=== PATIENT | male | born 1995 | race American Indian/Alaskan Native ===

== ENCOUNTER 2016-08-14 06:09 | Observation (INO) | payer OTHER ==
[2016-08-14 07:42] LABS: BASO # 0.1 K/uL (0.0-0.2); BASO % 0.9 % (0.0-2.0); EOS # 0.1 K/uL (0.0-0.7); EOS % 1.1 % (0.0-4.0); HEMATOCRIT 39.1 % (35.0-51.0); LYMPH # 2.1 K/uL (1.0-4.3); MEAN CELL VOLUME 86.7 fl (80.0-94.0); MEAN CORPUSCULAR HEMOGLOBIN 27.5 pg (27.0-31.0); MEAN CORPUSCULAR HGB CONC 31.8 g/dL (33.0-37.0); MEAN PLATELET VOLUME 8.7 fl (7.2-11.7); MONO # 0.9 K/uL (0.0-0.8); MONO % 15.7 % (0.0-10.0); NEUT # 2.8 K/uL (1.8-7.0); NEUT % 47.3 % (50.0-75.0); NRBC % 0.2 % (0.0-0.0); RED CELL DISTRIBUTION WIDTH 13.1 % (11.5-14.5); WHITE BLOOD COUNT 5.9 K/uL (4.8-10.8)
[2016-08-14 07:48] LABS: ALB/GLOB RATIO 1.2 (1.0-2.1); ALKALINE PHOSPHATASE 81 U/L (38-126); ALT/SGPT 31 U/L (21-72); AST/SGOT 31 U/L (17-59); BILIRUBIN,TOTAL 0.5 mg/dl (0.2-1.3); BLOOD UREA NITROGEN 11 mg/dl (9-20); CALCIUM 9.9 mg/dL (8.4-10.2); CARBON DIOXIDE 26 mmol/L (22-30); CHLORIDE 104 mmol/L (98-107); GFR AFRICAN-AMERICAN > 60; GLUCOSE,RANDOM 89 mg/dL (75-110); POTASSIUM 4.3 MMOL/L (3.6-5.0); SODIUM 146 mmol/l (132-148); TOTAL PROTEIN 8.3 G/DL (6.3-8.2)
--- NOTE | 2016-08-14 07:53 | ED PDOC ---
Lower Extremity Pain/Injury Time Seen by Provider: 08/14/16 07:02 Chief Complaint (Nursing): Lower Extremity Problem/Injury Chief Complaint (Provider): intensely increasing knee pain History Per: Patient History/Exam Limitations: no limitations Severity: Severe Additional Complaint(s): 21yo male w/ past distant surgical repair of internal derangement of knee comes to ED complaining severe left knee pain. States pain is worse with ambulation since playing basketball several weeks ago. Pain has limited ability to ambulate now, is crescendo in nature and now not relieved with available analgesia. Past Medical History Reviewed: Historical Data, Nursing Documentation, Vital Signs Vital Signs: Last Vital Signs Temp 97.4 F L 08/14/16 06:24 Pulse 69 08/14/16 06:24 Resp 17 08/14/16 06:24 BP 131/87 08/14/16 06:24 Pulse Ox 98 08/14/16 06:24 - Medical History PMH: No Chronic Diseases - Surgical History Other surgeries: meniscus repair - Family History Family History: States: Unknown Family Hx - Living Arrangements Living Arrangements: With Family - Social History Current smoker - smoking cessation education provided: No - Home Medications Home Medications: Ambulatory Orders Medication Instructions Recorded oxyCODONE/Acetaminophen [Percocet 1 mg PO .Q4-6 PRN 08/14/16 5/325 mg Tab] - Allergies Allergies/Adverse Reactions: Allergies Allergy/AdvReac Type Severity Reaction Status Date / Time No Known Allergies Allergy Verified 08/14/16 06:24 Review of Systems ROS Statement: Except As Marked, All Systems Reviewed And Found Negative Constitutional: Negative for: Fever, Chills Cardiovascular: Negative for: Chest Pain, Palpitations Musculoskeletal: Positive for: Other (knee pain) Neurological: Negative for: Weakness, Numbness Physical Exam - Reviewed Nursing Documentation Reviewed: Yes Vital Signs Reviewed: Yes - Physical Exam Appears: Positive for: Well, Non-toxic, No Acute Distress Head Exam: Positive for: ATRAUMATIC, NORMAL INSPECTION, NORMOCEPHALIC Skin: Positive for: Warm, Dry Eye Exam: Positive for: EOMI, PERRL Cardiovascular/Chest: Positive for: Regular Rate, Rhythm Respiratory: Positive for: Normal Breath Sounds. Negative for: Rales, Rhonchi, Wheezing Extremity: Positive for: Tenderness (Left knee +tender w small effusion and limted ROM). Negative for: Normal ROM (+limited ROM of left knee) Neurologic/Psych: Positive for: Alert, Oriented - Laboratory Results Result Diagrams: 08/14/16 07:30 08/14/16 07:30 - ECG O2 Sat by Pulse Oximetry: 98 (RA) Pulse Ox Interpretation: Normal Medical Decision Making Medical Decision Makin Will consult with Dr. Dey. Labs ordered. 0754: Case discussed with Dr. Dey orthopedics who requests patient be admitted to hospitalist. 0757: Case discussed with hospitalist Dr. Licona who accepts patient. Disposition - Clinical Impression Clinical Impression: Internal derangement of knee - Patient ED Disposition Is Patient to be Admitted: Yes Counseled Patient/Family Regarding: Studies Performed - Disposition Disposition Time: 07:57 Condition: STABLE - Pt Status Changed To: Hospital Disposition Of: Observation - POA Present On Arrival: Falls Or Trauma Additional Comments - Additional Comments Additional Comments: Scribe Attestation: Documented by John Gómez acting as a scribe for Noah Morris DO. Provider Scribe Attestation: All medical record entries made by the Scribe were at my direction and personally dictated by me. I have reviewed the chart and agree that the record accurately reflects my personal performance of the history, physical exam, medical decision making, and the department course for this patient. I have also personally directed, reviewed, and agree with the discharge instructions and disposition.
[2016-08-14 07:59] LABS: PARTIAL THROMBOPLASTIN TIME 29.3 SECONDS (23.3-32.5)
--- NOTE | 2016-08-14 08:11 | CP.PCM.HP ---
History of Present Illness - History of Present Illness History of Present Illness: Chief Complaint: Left knee pain HPI: 21 y/o gent , no significant PMH except for a Hx of Left Meniscus Tear s/p Repair in 2013, came in complaining of left knee pain. The patient is an active young man who plays a lot of sports, he injured his left knee 3 years ago and was found to have Meniscus Tear and this was repaired by Dr Dey 3 yrs ago. He was fine after the surgery and went back to playing basketball however about a year ago , he started having left knee pain again, limiting his activities. His pain continued to get worse and he started to have knee swelling. He stopped playing sports and for the past few months, he has severe pain even with minimal ambulation despite analgesics. Because of the persistence and worsening of his pain, he came to the ED. Present on Admission - Present on Admission Any Indicators Present on Admission: No Review of Systems - Review of Systems All systems: reviewed and no additional remarkable complaints except - Constitutional Constitutional: absent: Chills, Fever, Weight Loss, Weakness - EENT Ears: absent: Dizziness Nose/Mouth/Throat: absent: Nasal Congestion, Sore Throat - Cardiovascular Cardiovascular: absent: Chest Pain, Chest Pain at Rest, Dyspnea on Exertion, Lightheadedness, Orthopnea, Palpitations, Pedal Edema, Rapid Heart Rate - Respiratory Respiratory: absent: Cough, Dyspnea, Dyspnea on Exertion - Gastrointestinal Gastrointestinal: absent: Abdominal Pain, Nausea, Vomiting - Genitourinary Genitourinary: absent: Difficulty Urinating, Dysuria, Hematuria - Musculoskeletal Musculoskeletal: Arthralgias, Joint Swelling, Limited Range of Motion, Stiffness - Integumentary Integumentary: absent: Rash - Neurological Neurological: absent: Focal Weakness, Headaches, Memory Loss, Paresthesias - Psychiatric Psychiatric: absent: Anxiety, Depression - Endocrine Endocrine: absent: Polydipsia, Polyphagia, Polyuria - Hematologic/Lymphatic Hematologic: absent: Easy Bleeding, Easy Bruising Past Patient History - Infectious Disease Hx of Infectious Diseases: None - Tetanus Immunizations Tetanus Immunization: Unknown - Past Medical History & Family History Past Medical History?: Yes Past Family History: Reviewed and not pertinent Pertinent Family History: HTN- grandparents Parents are healthy - Past Social History Smoking Status: Never Smoked Chewing Tobacco Use: No Cigar Use: No Alcohol: Occasional Drugs: Denies Home Situation {Lives}: With Family Domestic Violence: Negative - CARDIAC Hx Cardiac Disorders: No - PULMONARY Hx Respiratory Disorders: No - NEUROLOGICAL Hx Neurological Disorder: No - HEENT Hx HEENT Problems: No - RENAL Hx Chronic Kidney Disease: No - ENDOCRINE/METABOLIC Hx Endocrine Disorders: No - HEMATOLOGICAL/ONCOLOGICAL Hx Blood Disorders: No - INTEGUMENTARY Hx Dermatological Problems: No - MUSCULOSKELETAL/RHEUMATOLOGICAL Hx Musculoskeletal Disorders: Yes Other/Comment: Left meniscus Tear s/p Repair 2013 - GASTROINTESTINAL Hx Gastrointestinal Disorders: No - GENITOURINARY/GYNECOLOGICAL Hx Genitourinary Disorders: No - PSYCHIATRIC Hx Psychophysiologic Disorder: No Hx Substance Use: No - SURGICAL HISTORY Hx Surgeries: Yes Hx Orthopedic Surgery: Yes (Meniscus Tear Repair 2013) Other/Comment: Umbilical Hernia repair at 11 y/o - ANESTHESIA Hx Anesthesia: Yes Hx Anesthesia Reactions: No Hx Malignant Hyperthermia: No Has any member of the family had a problem w/ anesthesia?: No Meds Allergies/Adverse Reactions: Allergies Allergy/AdvReac Type Severity Reaction Status Date / Time No Known Allergies Allergy Verified 08/14/16 06:24 Physical Exam - Constitutional Appears: Well, Non-toxic, No Acute Distress - Head Exam Head Exam: ATRAUMATIC, NORMAL INSPECTION, NORMOCEPHALIC - Eye Exam Eye Exam: EOMI, Normal appearance, PERRL Pupil Exam: NORMAL ACCOMODATION - ENT Exam ENT Exam: Mucous Membranes Moist, Normal External Ear Exam - Neck Exam Neck exam: Positive for: Full Rom. Negative for: Meningismus - Respiratory Exam Respiratory Exam: NORMAL BREATHING PATTERN. absent: Rales, Wheezes, Respiratory Distress - Cardiovascular Exam Cardiovascular Exam: REGULAR RHYTHM, +S1, +S2 - GI/Abdominal Exam GI & Abdominal Exam: Normal Bowel Sounds, Soft. absent: Tenderness - Extremities Exam Extremities exam: Positive for: joint swelling (left knee), normal capillary refill, pedal pulses present. Negative for: calf tenderness, pedal edema Additional comments: Pain on palpation of left knee pain on ROM left knee - Back Exam Back exam: FULL ROM, NORMAL INSPECTION. absent: CVA tenderness (L), CVA tenderness (R), paraspinal tenderness, vertebral tenderness - Neurological Exam Neurological exam: Alert, CN II-XII Intact, Oriented x3, Reflexes Normal - Psychiatric Exam Psychiatric exam: Normal Affect, Normal Mood - Skin Skin Exam: Dry, Intact, Normal Color, Warm Results - Vital Signs Recent Vital Signs: Last Vital Signs Temp 97.4 F L 08/14/16 06:24 Pulse 69 08/14/16 06:24 Resp 17 08/14/16 06:24 BP 131/87 08/14/16 06:24 Pulse Ox 98 08/14/16 08:07 - Labs Result Diagrams: 08/14/16 07:30 08/14/16 07:30 Labs: Laboratory Results - last 24 hr 08/14/16 07:30 WBC 5.9 RBC 4.52 Hgb 12.4 Hct 39.1 MCV 86.7 MCH 27.5 MCHC 31.8 L RDW 13.1 Plt Count 300 MPV 8.7 Neut % (Auto) 47.3 L Lymph % (Auto) 35.0 [place] % (Auto) 15.7 H Eos % (Auto) 1.1 Baso % (Auto) 0.9 Neut # 2.8 Lymph # 2.1 [place] # 0.9 H Eos # 0.1 Baso # 0.1 PT 10.9 INR 1.05 APTT 29.3 Sodium 146 Potassium 4.3 Chloride 104 Carbon Dioxide 26 Anion Gap 21 H BUN 11 Creatinine 1.0 Est GFR ( Amer) > 60 Est GFR (Non-Af Amer) > 60 Random Glucose 89 Calcium 9.9 Total Bilirubin 0.5 AST 31 ALT 31 Alkaline Phosphatase 81 Total Protein 8.3 H Albumin 4.5 Globulin 3.8 Albumin/Globulin Ratio 1.2 Assessment & Plan (1) Left knee pain Status: Acute Comment: severe left knee pain and swelling - hx of Meniscus Repair on the same knee 2014. Pain severe despite analgesics. Ortho consult- Dr Dey. Pain mgt- Morphine IV prn. PT/OT consult. DVT proph (2) Tear of meniscus of left knee Status: Chronic Comment: Hx of Meniscus Repair 2013 Decision To Admit - Pt Status Changed To: Hospital Disposition Of: Observation - . Bed Request Type: Med/Surg Admitting Physician: Sarai Licona
[2016-08-14] MEDS ORDERED: Succinylcholine 200 mg/10 ml Inj IV ONE (10:15)
[2016-08-14] MEDS ORDERED: Propofol 10 mg/ml Inj (20 ML) ONE ×2 (10:15→10:16)
[2016-08-14] MEDS ORDERED: Lidocaine 4% (Laryng-O-Jet) Kit MM ONE (10:15)
[2016-08-14] MEDS ORDERED: ePHEDrine 50 mg/ml Inj ONE (10:15)
[2016-08-14] MEDS ORDERED: Midazolam 2 MG/2 ML VIAL ONE (12:54)
[2016-08-14] MEDS ORDERED: Lactated Ringer's 1,000 ML IV ONE ×2 (13:00→14:30)
[2016-08-14] MEDS ORDERED: Dexamethasone 4 mg/1 ml ONE (13:39)
[2016-08-14] MEDS ORDERED: Desflurane Inhalation Anesthetic Liq (240 ml) ONE (14:21)
[2016-08-14] MEDS ORDERED: Bacitracin OINT 15GM TOP ONE (14:30)
[2016-08-14] MEDS ORDERED: MethylPREDNISolone Depo 40 mg/ml Inj IM ONE (14:30)
[2016-08-14] MEDS ORDERED: Morphine 1 mg/ml preservative-free Inj(Duramorph) IV ONE (14:30)
[2016-08-14] MEDS ORDERED: Bupivacaine 0.5% 50 ML IJ ONE (14:30)
--- NOTE | 2016-08-14 14:36 | PCM.SURG1 ---
Surgeon's Initial Post Op Note - Surgeon's Notes Surgeon: Tiburcio [employer] Economist: JC Peña Type of Anesthesia: General Endo Anesthesia Administered By: DR Shi Pre-Operative Diagnosis: chondral fx medial/lateral meniscus. tricompartmental synovitis. tear lateral mensicus Operative Findings: Chondral fx medial aspect medial femoral condyle/mid aspect lateral femoral condyle. tricompartmental synovits (possible excessive lateral patella p[ressure syndrome, pinching synovium). tear medial meniscus/tear lateral menicus. tendonosis patella ligament and quad tendon Post-Operative Diagnosis: as above Operation Performed: arthroscopic microfracture- medial/lateral femoral condyle. arthroscopic tricampartmental synovectom. arethroscopic partial medial/lateral meniscectomy/intrarticular inmjection. erlin;ective injections patella ligamnet/quad tendon insetion. applx knee immobilizer Specimen/Specimens Removed: cartyilage/synovium/bone Estimated Blood Loss: EBL {In ML}: 15 Blood Products Given: N/A Drains Used: No Drains Post-Op Condition: Good Date of Surgery/Procedure: 08/14/16 Time of Surgery/Procedure: 13:55 (time in room/anaetsjhesia indcution time 1300)
[2016-08-14] MEDS ORDERED: Lactated Ringer's 1,000 ML IV SCH (15:15)
[2016-08-14] MEDS: HYDROmorphone 0.5 mg/0.5 ml ISec IVP PRN ×3 (15:29→16:10)
--- NOTE | 2016-08-14 17:49 | CP.PCM.DIS ---
Provider - Provider Date of Admission: 08/14/16 07:57 Attending physician: Sarai Licona MD Consults: Ortho: Dr Dey Time Spent in preparation of Discharge (in minutes): 20 Diagnosis - Discharge Diagnosis (1) Left knee pain Status: Acute (2) Tear of meniscus of left knee Status: Acute (3) S/P arthroscopic surgery of left knee Status: Acute Hospital Course - Lab Results Lab Results: Most Recent Lab Values WBC 5.9 K/uL (4.8-10.8) 08/14/16 07:30 RBC 4.52 Mil/uL (4.40-5.90) 08/14/16 07:30 Hgb 12.4 g/dL (12.0-18.0) 08/14/16 07:30 Hct 39.1 % (35.0-51.0) 08/14/16 07:30 MCV 86.7 fl (80.0-94.0) 08/14/16 07:30 MCH 27.5 pg (27.0-31.0) 08/14/16 07:30 MCHC 31.8 g/dL (33.0-37.0) L 08/14/16 07:30 RDW 13.1 % (11.5-14.5) 08/14/16 07:30 Plt Count 300 K/uL (130-400) 08/14/16 07:30 MPV 8.7 fl (7.2-11.7) 08/14/16 07:30 Neut % (Auto) 47.3 % (50.0-75.0) L 08/14/16 07:30 Lymph % (Auto) 35.0 % (20.0-40.0) 08/14/16 07:30 [place] % (Auto) 15.7 % (0.0-10.0) H 08/14/16 07:30 Eos % (Auto) 1.1 % (0.0-4.0) 08/14/16 07:30 Baso % (Auto) 0.9 % (0.0-2.0) 08/14/16 07:30 Neut # 2.8 K/uL (1.8-7.0) 08/14/16 07:30 Lymph # 2.1 K/uL (1.0-4.3) 08/14/16 07:30 [place] # 0.9 K/uL (0.0-0.8) H 08/14/16 07:30 Eos # 0.1 K/uL (0.0-0.7) 08/14/16 07:30 Baso # 0.1 K/uL (0.0-0.2) 08/14/16 07:30 PT 10.9 SECONDS (9.6-11.2) 08/14/16 07:30 INR 1.05 (0.92-1.08) 08/14/16 07:30 APTT 29.3 SECONDS (23.3-32.5) 08/14/16 07:30 Sodium 146 mmol/l (132-148) 08/14/16 07:30 Potassium 4.3 MMOL/L (3.6-5.0) 08/14/16 07:30 Chloride 104 mmol/L (98-107) 08/14/16 07:30 Carbon Dioxide 26 mmol/L (22-30) 08/14/16 07:30 Anion Gap 21 (10-20) H 08/14/16 07:30 BUN 11 mg/dl (9-20) 08/14/16 07:30 Creatinine 1.0 mg/dL (0.8-1.5) 08/14/16 07:30 Est GFR ( Amer) > 60 08/14/16 07:30 Est GFR (Non-Af Amer) > 60 08/14/16 07:30 Random Glucose 89 mg/dL (75-110) 08/14/16 07:30 Calcium 9.9 mg/dL (8.4-10.2) 08/14/16 07:30 Total Bilirubin 0.5 mg/dl (0.2-1.3) 08/14/16 07:30 AST 31 U/L (17-59) 08/14/16 07:30 ALT 31 U/L (21-72) 08/14/16 07:30 Alkaline Phosphatase 81 U/L (38-126) 08/14/16 07:30 Total Protein 8.3 G/DL (6.3-8.2) H 08/14/16 07:30 Albumin 4.5 g/dL (3.5-5.0) 08/14/16 07:30 Globulin 3.8 gm/dL (2.2-3.9) 08/14/16 07:30 Albumin/Globulin Ratio 1.2 (1.0-2.1) 08/14/16 07:30 - Hospital Course Hospital Course: 21 y/o gent with hx of Left eniscus Tear and repair in 2013, presented to the ED because of severe left knee pain. Ortho consulted, pt was seen by Dr Dey. Patient then underwent Left Arthroscopic knee surgery with repair of torn meniscus. (1) Left knee pain Status: Acute severe left knee pain and swelling - hx of Meniscus Repair on the same knee 2013. Pain severe despite analgesics. Ortho consulted- Dr Dey. 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 absent: Prolonged Expiratory Phase - Cardiovascular Exam Cardiovascular Exam: REGULAR RHYTHM, +S1, +S2 - GI/Abdominal Exam GI & Abdominal Exam: Normal Bowel Sounds, Soft. absent: Tenderness - Extremities Exam Extremities exam: normal capillary refill, pedal pulses present Additional comments: left knee with immobilizer - Back Exam Back exam: FULL ROM. absent: CVA tenderness (L), CVA tenderness (R) - Neurological Exam Neurological exam: Alert, CN II-XII Intact, Oriented x3, Reflexes Normal - Psychiatric Exam Psychiatric exam: Normal Affect, Normal Mood - Skin Skin Exam: Dry, Normal Color, Warm Discharge Plan - Follow Up Plan Condition: STABLE Disposition: HOME/ ROUTINE Additional Instructions: ff up with Dr Dey next wk Referrals: Ok Dey III, MD [Staff Provider] -
[2016-08-14 18:17] VITALS: BP 126/78; PULSE 78; RESP 18; TEMP 98.5; O2SAT 98
--- NOTE | 2016-08-15 15:11 | OP ---
PROCEDURE DATE: 08/14/2016 PREOPERATIVE DIAGNOSIS: Internal derangement of the left knee. POSTOPERATIVE DIAGNOSES: 1. Chondral fracture of medial femoral condyle, medial aspect, lateral femoral condyle, central aspe ct. 2. Tricompartmental synovitis. 3. Tear medial meniscus, tear lateral meniscus. 4. Tricompartmental synovitis. PROCEDURES: Surgical arthroscopy, microfracture medial femoral condyle, lateral femoral condyle. Benedict gical arthroscopy, partial tricompartmental synovectomy. Surgical arthroscopy, partial medial, parti al lateral meniscectomy, intraarticular injection. SURGEON: Ok Dey MD CLOTH DESIGNER: Adela Beck, Certified Registered Nursing Sole Layer. ANESTHESIA: General endotracheal anesthesia, ____ OPERATIVE INDICATION: The patient is a 21-year-old gentleman who had undergone surgical arthroscopy several years ago. The patient has developed increasing pain in the area of the femoral condyle medi ally and laterally and at the joint line. The patient was refractory to a conservative approach cons isting of intraarticular injections, activity modification and therapy. Pros, cons, risks and benefi ts of surgical approach were discussed. The possibility of mechanical failure, infection, thromboemb olic disease, secondary or tertiary surgery is discussed. The possibility of secondary or tertiary s urgery was discussed. The possibility because of the patient's arthritic change of osteotomy and rae ited arthroplasty in the future was discussed. Again, the possibility of mechanical failure, infecti on, thromboembolic disease, nerve injury, secondary or tertiary surgery is discussed. The possibilit y of later surgery for exploration of the patella ligament is discussed. Nothing aggressive in terms of formal open procedure will be accomplished today as per the patient and his mother, and a formal arthrotomy will be accomplished later, if necessary. OPERATIVE PROCEDURE: After having obtained informed consent in the above fashion, after having ident ified side, site, and procedure, and a critical pause/timeout, after the satisfactory induction of th e anesthetic, the patient identified, in the supine position with all bony prominences well padded, t he left lower extremity was prepped and free draped in the usual fashion for lower extremity surgery. The tourniquet had been applied, but is not yet inflated. After exsanguinating the limb using a 6- inch Esmarch bandage, the tourniquet which had been applied is inflated to 350 mmHg. The knee escobedo is employed. After sterilely prepping and draping, after having identified side, site and procedure and a critical pause/timeout, after the satisfactory induction of the anesthetic, again the patient identified, in the supine position in the left lower extremity, the left lower extremity was prepped and free draped in the usual fashion for ____ extremity surgery. The tourniquet has been applied, bu t is not yet inflated. After exsanguinating the limb, using a 6 inch Esmarch bandage, the tourniquet , which had been applied, is inflated to ____ mmHg. This having been accomplished, the joint is insu fflated from an anterolateral portal with 10 mL of 1% lidocaine without epinephrine. Using a #11 zahra de, followed by spreading, followed by introduction of blunt trocar, the arthroscope was introduced. Examination of the joint commences. There is found to be marked and exuberant synovitis tricompartm entally. Triangulation is accomplished using #18 gauge spinal needle, followed by #11 blade, followed by spreading, followed by introduction of blunt trocar. With the arthroscope anterolaterally, a par tial tricompartmental synovectomy is accomplished, both to improve visualization and to ablate irrita tive tissue. With the arthroscope anterolaterally, a careful partial tricompartmental synovectomy is accomplished. Bleeding points were controlled with the Moises surface. Synovectomy having been ac complished, attention is now turned to the medial compartment and was found to be evidence of a blist er/chondral fracture at the superior medial aspect of the distal femoral condyle. With the arthrosco pe placed anteromedially, with the surgeon exerting a very gentle valgus stress not to enter the medi al collateral ligament. Using a combination of the arthroscopic scissors, the chondral fracture and blister was removed using arthroscopic scissors. Arthroscopic shaver is employed as well. The arthr oscopic shaver is employed and the chondral fracture is carefully denuded. The chondral fracture hav ing been denuded, the arthroscope was moved anterolaterally and a microfracture technique is accompli shed in the medial femoral condyle. Microfracture of the medial condyle is accomplished using the ar throscopic pic down to bleeding bone in a honeycomb type fashion. Please refer to the video photogra phs. This having been accomplished, with the arthroscope anteromedially, using the arthroscopic shav er, that is debrided. There was found to be a tear of the inner free edge of the medial meniscus. U sing a combination of the straight-biting basket forceps and the side-biting basket forceps, a partia l medial meniscectomy is accomplished. The inner free edge is smoothed using the Arthrocare wand. W ith the arthroscope medially, now the deep posterior horn is accessed and the inner free edge is smoo thed using the [place] Serfas wand. The arthroscope is now placed anterolaterally with the knee in f igure 4 position. There is found to be evidence of a complex tear of the lateral meniscus extending from the posterior horn to the mid aspect. Using a combination of the straight-biting basket forceps and the side-biting basket forceps, a partial lateral meniscectomy was accomplished. The inner free edge is smoothed using the arthroscopic shaver and the [place] Serfas wand. The tear is resected us ing a combination of straight-biting basket forceps and side-biting basket forceps. A partial latera l meniscectomy is completed. With the arthroscope anterolaterally, using a combination of straight-b iting basket forceps and side-biting basket forceps, a partial lateral meniscectomy was accomplished. The inner free edge is smoothed using the wand. This having been accomplished, a tricompartmental synovectomy was completed. 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 Tr icompartmental synovectomy is completed. Bleeding points are controlled with the [place] Serfas wand . Portals are closed with Vicryl and nylon. Intraarticular injection is offered. Jett Monaco comp ression dressing and knee immobilizer was applied. OPERATIVE PROCEDURES: 1. Surgical arthroscopy, microfracture, medial and lateral femoral condyle. 2. Surgical arthroscopy, partial tricompartmental synovectomy. 3. Surgical arthroscopy, partial lateral meniscectomy. 4. Surgical arthroscopy, partial medial meniscectomy. 5. Surgical arthroscopy, intraarticular injection. Ok Dey MD cc: [id number] TT: 08/15/2016 15:11:00 rn
--- NOTE | 2016-08-16 11:08 | RAD ---
PROCEDURE: Intraoperative fluoroscopy HISTORY: LEFT KNEE COMPARISON: Not available TECHNIQUE: Intraoperative fluoroscopy was provided. FINDINGS: Two fluoroscopic spot films are submitted. Total time of fluoroscopy was 8.2 seconds. IMPRESSION: Fluoroscopy provided.
== END 2016-08-14 18:20 | disposition home or self-care (01) ==
LOC: H.ER 06:09 → H.ERHOLD 07:57
PROVIDERS: ADMIT Internal Medicine; ATTEND Internal Medicine
DX: S72.422A Displaced fracture of lateral condyle of left femur, initial encounter for closed fracture (principal); S72.432A Displaced fracture of medial condyle of left femur, initial encounter for closed fracture; M65.9 Synovitis and tenosynovitis, unspecified; X58.XXXA Exposure to other specified factors, initial encounter; Y93.67 Activity, basketball; Y92.9 Unspecified place or not applicable; S83.282A Other tear of lateral meniscus, current injury, left knee, initial encounter; S83.242A Other tear of medial meniscus, current injury, left knee, initial encounter; M17.9 Osteoarthritis of knee, unspecified